=== PATIENT | female | born 1965 | race Caucasian/White ===

== ENCOUNTER 2018-07-25 07:52 | Day surgery (SDC) | payer MEDICAID ==
[~2018-07-25] VITALS: Ht 170.2 cm; Wt 71.6 kg
[2018-07-25] VITALS (8 sets, daily range): BP systolic 94–127; BP diastolic 34–83
[2018-07-25] MEDS ORDERED: normal saline 1000ml 1,000 ML IV SCH (08:10)
[2018-07-25] MEDS ORDERED: DOCU-261 PO (08:42)
[2018-07-25] MEDS ORDERED: SENN-161 PO (08:42)
[2018-07-25] MEDS ORDERED: HYDR-4353 PO (08:42)
[2018-07-25] MEDS ORDERED: LORA0.5T PO (08:42)
[2018-07-25 08:52] LABS: BASOPHILS % (AUTO) 0.7 % (0-1); EOSINOPHILS % (AUTO) 0.8 % (0-6); HEMATOCRIT 38.3 % (35.0-45.0); HEMOGLOBIN 12.6 g/dl (12.0-16.0); LYMPHOCYTES # (AUTO) 1.1 X10'3 (1.1-4.8); LYMPHOCYTES % (AUTO) 21.3 % (21-51); MEAN CORPUSCULAR HEMOGLOBIN 30.4 PG (27.0-31.0); MEAN CORPUSCULAR HGB CONC 32.9 % (33.0-36.5); MEAN CORPUSCULAR VOLUME 92.2 FL (78-98); MEAN PLATELET VOLUME 8.1 FL (7.4-10.4); MONOCYTES # (AUTO) 0.4 X10'3 (0-0.9); MONOCYTES % (AUTO) 7.9 % (2-12); NEUTROPHILS # (AUTO) 3.6 X10'3 (1.8-7.7); NEUTROPHILS % (AUTO) 69.3 % (42-75); PLATELET COUNT 306 X10'3 (140-440); RED BLOOD COUNT 4.15 X10'6 (4.20-5.60); WHITE BLOOD COUNT 5.1 X10'3 (4.5-11.0)
[2018-07-25 08:55] LABS: ALBUMIN 4.6 G/DL (3.4-5.0); ANION GAP 11 (8-16); BLOOD UREA NITROGEN 12 MG/DL (7-18); BUN/CREATININE RATIO 14.8 (6.6-38.0); CALCIUM 9.6 MG/DL (8.5-10.1); CHLORIDE 102 MMOL/L (99-107); CREATININE 0.81 MG/DL (0.40-0.90); GLUCOSE 92 MG/DL (70-104); POTASSIUM 3.6 MMOL/L (3.5-5.1); SODIUM 142 MMOL/L (135-145); TOTAL CARBON DIOXIDE 28.9 MMOL/L (24-32); eGFR 74 ML/MIN
[2018-07-25] MEDS ORDERED: fentaNYL/PF 50MCG/1 ML 2ML syringe IV PRN (08:55)
[2018-07-25] MEDS ORDERED: midazolam 2 mg/2 ml injection IV PRN (08:55)
[2018-07-25] MEDS ORDERED: heparin sodium, porcine/PF 100unit/ml 5ML syringe ICATH ONE (08:55)
[2018-07-25] MEDS ORDERED: LIDOcaine 1%/PF 5ML 10 MG/ML VIAL SQ ONE (08:55)
[2018-07-25] MEDS ORDERED: LIDOcaine 0.5% (5mg/ml) 50ml vial ONE (09:15)
[2018-07-25] MEDS ORDERED: fentaNYL/PF 50MCG/1 ML 2ML syringe ONE ×2 (09:15→09:55)
[2018-07-25] MEDS ORDERED: midazolam 2 mg/2 ml injection ONE ×2 (09:15→09:55)
[2018-07-25] MEDS ORDERED: heparin sodium, porcine/PF 100unit/ml 5ML syringe ONE (09:15)
[2018-07-25] MEDS ORDERED: LIDOcaine 1% (10mg/ml) 2ml vial ONE (09:16)
== END 2018-07-25 12:10 | disposition home or self-care (01) ==
LOC: SSTAY O 07:52
PROVIDERS: ATTEND Radiology Diagnostic Radiology
DX: C21.0 Malignant neoplasm of anus, unspecified (principal); E03.9 Hypothyroidism, unspecified; F41.8 Other specified anxiety disorders; Z72.89 Other problems related to lifestyle; Z79.1 Long term (current) use of non-steroidal anti-inflammatories (NSAID); Z79.891 Long term (current) use of opiate analgesic; Z90.711 Acquired absence of uterus with remaining cervical stump; Z87.891 Personal history of nicotine dependence; Z98.890 Other specified postprocedural states; Z79.899 Other long term (current) drug therapy; Z83.6 Family history of other diseases of the respiratory system; Z83.3 Family history of diabetes mellitus; Z80.0 Family history of malignant neoplasm of digestive organs; Z81.2 Family history of tobacco abuse and dependence; Z83.49 Family history of other endocrine, nutritional and metabolic diseases
CPT/HCPCS: 36415; 36561; 76937; 77001; 80048; 85025; 99152; 99153; A6219; C1788; C1894; J1642; J2001; J2250; J3010; J3490; A4620; J7030